=== PATIENT | male | born 1970 | race Caucasian/White ===

== ENCOUNTER 2018-10-19 19:31 | Inpatient (IN) | payer OTHER ==
[~2018-10-19] VITALS: Ht 177.8 cm; Wt 72.4 kg
[2018-10-19 19:38] VITALS: Ht 177.8 cm; Wt 72.4 kg
[2018-10-19 20:25] LABS: PLATELET COUNT 125 x10^3mcL (130-400); RED CELL DISTRIBUTION WIDTH 20.6 % (11.5-14.5)
[2018-10-19 20:27] LABS: ALBUMIN 3.4 g/dL (3.4-5.0); ALKALINE PHOSPHATASE 214 U/L (46-116); ALT/SGPT 259 U/L (16-63); AST/SGOT 125 U/L (15-37); CALCIUM 9.5 mg/dL (8.5-10.1); CARBON DIOXIDE 14.3 mmol/L (21-32); CHLORIDE SERUM 78 mmol/L (98-107); GLUCOSE SERUM 66 mg/dL (74-106); TOTAL PROTEIN, SERUM 7.1 g/dL (6.4-8.2)
[2018-10-19 20:30] LABS: BAND NEUTROPHIL 6 % (0-10); BASOPHIL 0 % (0-2); MONOCYTE 3 % (0-7); SEGMENTED NEUTROPHILS 83 % (37-75)
[2018-10-19 20:31] LABS: burr cell (echinocyte) 2+; rbc morphology (normal/abnorm) ABNORMAL (NORMAL)
[2018-10-19 20:32] LABS: PLATELET MORPHOLOGY GIANT PLATELET SEEN
[2018-10-19 20:33] LABS: CHOLESTEROL 61 mg/dL (<200); GFR1 16 mL/min; HDL CHOLESTEROL 9 mg/dL (40-60)
[2018-10-19 20:36] LABS: POTASSIUM SERUM 6.8 mmol/L (3.5-5.1); SODIUM SERUM 113 mmol/L (136-145)
[2018-10-19 20:38] LABS: CREATININE SERUM 4.3 mg/dL (0.7-1.3)
[2018-10-19 20:39] LABS: BILIRUBIN TOTAL 14.53 mg/dL (0.20-1.00)
[2018-10-19 20:57] LABS: UA SPECIFIC GRAVITY >=1.030 (1.005-1.035); microscopic required? YES; urine erythrocyte 1+ (NEGATIVE)
[2018-10-20 00:01] LABS: CALCIUM 9.1 mg/dL (8.5-10.1); CARBON DIOXIDE 14.3 mmol/L (21-32)
[2018-10-20] MEDS ORDERED: LASIX20 MG PO (00:08)
[2018-10-20] MEDS ORDERED: DIGITEK125 MCG PO (00:08)
[2018-10-20] MEDS ORDERED: AMIODARONE200 MG GT (00:09)
[2018-10-20] MEDS ORDERED: TOPROL XL25 MG PO (00:09)
[2018-10-20 00:10] LABS: POTASSIUM SERUM 6.1 mmol/L (3.5-5.1)
[2018-10-20 00:11] LABS: CREATININE SERUM 4.1 mg/dL (0.7-1.3)
[2018-10-20] MEDS ORDERED: POTASSIUM CHLO10 MEQ PO (00:12)
[2018-10-20] MEDS ORDERED: COUMADIN1 MG PO (00:12)
[2018-10-20 00:16] VITALS: BP 83/42
[2018-10-20 02:06] VITALS: BP 124/51; BP 126/51
[2018-10-20 03:00] VITALS: BP 86/60
[2018-10-20 04:54] LABS: PLATELET COUNT 92 x10^3mcL (130-400); RED CELL DISTRIBUTION WIDTH 20.5 % (11.5-14.5)
[2018-10-20 05:10] LABS: CALCIUM 8.9 mg/dL (8.5-10.1); CARBON DIOXIDE 14.3 mmol/L (21-32); MAGNESIUM 2.4 mg/dL (1.8-2.4); PHOSPHOROUS 8.2 mg/dL (2.5-4.9)
[2018-10-20 05:19] LABS: POTASSIUM SERUM 5.8 mmol/L (3.5-5.1)
[2018-10-20 05:20] LABS: CREATININE SERUM 4.1 mg/dL (0.7-1.3)
[2018-10-20 05:40] LABS: MONOCYTE 3 % (0-7); SEGMENTED NEUTROPHILS 72 % (37-75)
[2018-10-20 05:41] LABS: BAND NEUTROPHIL 5 % (0-10); METAMYELOCTE 2 % (0-2); rbc morphology (normal/abnorm) ABNORMAL (NORMAL); target cell (codocyte) 1+
[2018-10-20 05:43] LABS: acanthocyte (spur cell) 2+
[2018-10-20 08:06] VITALS: BP 65/47
== END 2018-10-20 13:38 | disposition expired | DRG 720 ==
LOC: ED 19:31 → IC 22:43
PROVIDERS: Emergency Medicine; General Practice
PROC: 02HV33Z Insertion of Infusion Device into Superior Vena Cava, Percutaneous Approach (ICD-10-PCS; principal; 2018-10-20)
PROC: B548ZZA Ultrasonography of Superior Vena Cava, Guidance (ICD-10-PCS; 2018-10-20)
PROC: 5A09357 Assistance with Respiratory Ventilation, Less than 24 Consecutive Hours, Continuous Positive Airway Pressure (ICD-10-PCS; 2018-10-20)
DX: A41.9 Sepsis, unspecified organism (principal); I21.A1 Myocardial infarction type 2; J69.0 Pneumonitis due to inhalation of food and vomit; J96.01 Acute respiratory failure with hypoxia; K72.00 Acute and subacute hepatic failure without coma; N17.0 Acute kidney failure with tubular necrosis; G93.41 Metabolic encephalopathy; R65.21 Severe sepsis with septic shock; I50.23 Acute on chronic systolic (congestive) heart failure; E87.1 Hypo-osmolality and hyponatremia; D63.8 Anemia in other chronic diseases classified elsewhere; N18.9 Chronic kidney disease, unspecified; E87.5 Hyperkalemia; F19.10 Other psychoactive substance abuse, uncomplicated; Z51.5 Encounter for palliative care; I46.9 Cardiac arrest, cause unspecified; Z66 Do not resuscitate; E83.39 Other disorders of phosphorus metabolism; D69.49 Other primary thrombocytopenia; E16.2 Hypoglycemia, unspecified; Z68.23 Body mass index [BMI] 23.0-23.9, adult; Z86.73 Personal history of transient ischemic attack (TIA), and cerebral infarction without residual deficits
CPT/HCPCS: 36600; 82962; J0696; J2270; J2370; J2543; J3490; J7030; J7040; J7620; Q0092